=== PATIENT | male | born 1975 | race Caucasian/White ===

== ENCOUNTER 2021-11-11 01:44 | Day surgery (SDC) | payer BC, SELFPAY ==
[2021-10-30 14:36] VITALS: BMI 30.2
[2021-11-11 06:29] VITALS: BP 166/82; PULSE 66; RESP 18; TEMP 36.5; O2SAT 97
[2021-11-11 06:31] VITALS: BMI 30.7
[2021-11-11] MEDS: LACTATED RINGERS 1,000 ML 150 ML IV CONT (06:37)
--- NOTE | 2021-11-11 06:46 | P.PNAN_ITS ---
Anes - Initial Pre Proc Eval Procedure: Operation Date: 11/11/21 07:30 Proposed Procedures p Screening Colonoscopy - Saroj Stephenson MD Date/Time: 11/11/21 06:46 Surgeon: Saroj Stephenson MD Pre Op Diagnosis: neoplasm screening Patient Data Age: 46 Gender: M Height: 1.75 m Weight: 94.4 kg Last Vital Signs Temp 36.5 C 11/11/21 06:29 Pulse 66 11/11/21 06:29 Resp 18 11/11/21 06:29 BP 166/82 H 11/11/21 06:29 Pulse Ox 97 11/11/21 06:29 Allergies Allergy/AdvReac Type Severity Reaction Status Date / Time No Known Allergies Allergy Verified 11/11/21 06:28 Home Medications Medication Instructions Recorded Confirmed Type losartan-hydrochlorothiazide 1 tablet PO DAILY 10/30/21 10/30/21 History pravastatin 40 mg PO DAILY 10/30/21 10/30/21 History Patient hx anesthesia problems: none Family hx anesthesia problems: none Results Review: All pre-operative results and documents have been reviewed as part of the pre-operative evaluation. [facility] Past Medical History Medical History (Updated 11/11/21 @ 06:49 by Ranulfo Russo MD) HTN (hypertension) Hyperlipidemia Obesity Surgical History Surgical History (Updated 11/11/21 @ 06:49 by Ranulfo Russo MD) H/O hernia repair Social History Social History Smoking status: Never smoker Alcohol intake: current Drinks per week: 3 Substance use: never Substance use type: does not use Living arrangements: with family Spiritual care concerns: No Anes - Eval Final PreProcedure Day of Procedure 11/11/21 06:46 Patient weight: obese Heart: regular rate and rhythm Lungs: clear to auscultation Airway: Mallampati scale class II and other (narrow high arched palate) Neurological: alert and oriented Last oral intake: >/= 8 hours ASA classification: III Emergent: no Anesthetic plan: proceed Anesthesia type and monitoring: general GIVS and standard monitoring Results Review: All pre-operative results and documents have been reviewed as part of the pre-operative evaluation. Informed Consent: The patient's anesthetic plan and its attendant risks and benefits were discussed with the patient/family/POA. Questions were solicited and answers provided to the satisfaction of the patient/family/POA.
--- NOTE | 2021-11-11 07:49 | WPDGICN ---
Assessment and Plan Assessment and plan (1) Encounter for screening colonoscopy: Code(s): Z12.11 - Encounter for screening for malignant neoplasm of colon Status: Acute Assessment and Plan: Patient presents for screening colonoscopy. He appears to be at average risk for colon polyps. GI Consult Note Consult date/time: 11/11/21 07:49 HPI: Lucho Zhu is a 46 year old male Presents for screening colonoscopy. Patient has current weight appetite bowel movements are normal. He denies abdominal pain. He has had no bleeding. Family history is noncontributory. Review of Systems Review of Systems: All systems reviewed & are unremarkable except as noted in HPI and below PMFSH Past Medical History Medical History (Updated 11/11/21 @ 07:51 by Saroj Stephenson MD) HTN (hypertension) Hyperlipidemia Obesity Surgical History Surgical History (Updated 11/11/21 @ 06:49 by Ranulfo Russo MD) H/O hernia repair Social History Social History Smoking status: Never smoker Alcohol intake: current Drinks per week: 3 Substance use: never Substance use type: does not use Living arrangements: with family Spiritual care concerns: No Meds Home Medications and Allergies Home Medications Medication Instructions Recorded Confirmed Type losartan-hydrochlorothiazide 1 tablet PO DAILY 10/30/21 10/30/21 History pravastatin 40 mg PO DAILY 10/30/21 10/30/21 History Allergies Allergy/AdvReac Type Severity Reaction Status Date / Time No Known Allergies Allergy Verified 11/11/21 06:28 Vital Signs Vital Signs - 24 hr 11/11/21 06:29 Temperature 97.7 F Pulse Rate 66 Respiratory Rate 18 Blood Pressure 166/82 H Pulse Oximetry 97 Exam Narrative: Physical exam reveals patient be alert. Vital signs stable. HEENT exam is unremarkable. Patient is anicteric. Lungs are clear to auscultation and percussion. Heart is without murmur or extra sounds. Abdominal exam bowel sounds are present soft nontender with no organomegaly. Digital external rectal exam is normal.
[2021-11-11 07:53] VITALS: BP 115/66; PULSE 46; RESP 17; O2SAT 100
[2021-11-11 08:03] VITALS: BP 111/66; PULSE 47; RESP 14; O2SAT 100
[2021-11-11 08:13] VITALS: BP 128/74; PULSE 48; RESP 17; O2SAT 100
== END 2021-11-11 08:24 | disposition home or self-care (01) ==
PROVIDERS: PCP Internal Medicine; Visit Provider Internal Medicine Gastroenterology
PROC: 0DJD8ZZ Inspection of Lower Intestinal Tract, Via Natural or Artificial Opening Endoscopic (ICD-10-PCS; CPT 45378; principal; 2021-11-11 07:30)
DX: Z12.11 Encounter for screening for malignant neoplasm of colon (principal); I10 Essential (primary) hypertension; E78.5 Hyperlipidemia, unspecified
CPT/HCPCS: 45378; J2704; J7120

== ENCOUNTER 2025-09-07 12:52 | Outpatient (CLI) | payer OTHER, SELFPAY ==
--- NOTE | ~2025-09-07 | US_ITS ---
Examination: Ultrasound of the retroperitoneum including kidneys and bladder. Clinical History: Renal cyst . Comparison: CT abdomen pelvis 12/28/2017. Findings: Right kidney: 14 cm. Normal echogenicity. No collecting system dilatation. No shadowing calculi. Left kidney: 14 cm. Normal echogenicity. No collecting system dilatation. No shadowing calculi. 20 mm simple cyst. Urinary bladder: No wall thickening or focal abnormality. IMPRESSION: 1. No acute findings. 2. 20 mm exophytic simple cyst left kidney. Exophytic cyst from prior CT from 2017 measured 36 mm. Probably simply decreased in size. Reviewed, dictated and finalized at location R. IMPRESSION: 1. No acute findings. 2. 20 mm exophytic simple cyst left kidney. Exophytic cyst from prior CT from 2018 measured 36 mm. Probably simply decreased in size.
== END 2025-09-07 12:53 | disposition home or self-care (01) ==
PROVIDERS: PCP Internal Medicine; Visit Provider Internal Medicine Endocrinology, Diabetes & Metabolism
DX: N28.1 Cyst of kidney, acquired (principal)
CPT/HCPCS: 76770